=== PATIENT | male | born 1960 | race Caucasian/White ===

== ENCOUNTER 2017-12-24 19:59 | Emergency (ER) | payer MEDICARE ==
[~2017-12-24] VITALS: Ht 182.9 cm; Wt 118.2 kg
[~2017-12-24 19:59] MED LIST: ALDACTONE 25MG25 M1 PO; ASPIRIN 81M81 MG/TA2 PO; COREG 25MG25 MG/TAB PO; COREG12.5 MG PO; GLUCOPHAGE XR500 M1 PO; HUMALOG100 U/ML SQ; LANOXIN 0.25M0.25 MG PO; LANTUS SOLOS100 U/ML SQ; LANTUS100 U/ML SC; LASIX 20MG TABL20 MG PO; LASIX 40MG TABL40 MG PO; NOVOLOG FLEX100 U/ML SC; NOVOLOGMIX70/30 SQ; PRIL40 PO; TIKOSYN0.5 MG PO; XARELTO PO; XARELTO20 MG PO; ZESTRIL 20MG TA20 MG PO
[2017-12-24 20:03] VITALS: TEMP 97.7
[2017-12-24 20:30] LABS: BASO # 0.1 (0.0-0.2); BASO % 0.6 % (0.0-2.0); EOS # 0.4 (0.0-0.7); EOS % 3.4 % (0-4.0); GRAN # 7.6 (1.4-6.5); GRAN % 66.5 % (42.2-75.2); HEMATOCRIT 39.7 % (42.0-52.0); HEMOGLOBIN 13.4 g/dl (13.5-18.0); LYMPH # 2.1 (1.2-3.4); LYMPH % 18.1 % (20.0-51.0); MEAN CELL VOLUME 85 fl (80.0-100.0); MEAN CORPUSCULAR HEMOGLOBIN 29 pg (27.0-31.0); MEAN CORPUSCULAR HGB CONC 34 g/dl (33.0-37.0); MEAN PLATELET VOLUME 10.9 fl (7.4-10.4); MONO # 1.2 (0.1-0.6); MONO % 10.6 % (1.7-9.3); PLATELET COUNT 160 K/mm3 (130-400); RED BLOOD COUNT 4.65 M/mm3 (4.20-5.60); REDCELL DISTRIBUTION WIDTH-CV 13.2 % (11.5-14.5)
[2017-12-24 20:40] LABS: ALBUMIN 3.6 gm/dL (3.5-5.0); BILIRUBIN,TOTAL 0.4 mg/dL (0.0-1.0); CALCIUM 9.1 mg/dL (8.4-10.2); CREATININE, serum 0.98 mg/dL (0.66-1.25); POTASSIUM 3.6 mmol/L (3.4-5.0); TOTAL PROTEIN 7.7 gm/dL (6.4-8.2)
[2017-12-24] MEDS ORDERED: LANTUS100 U/ML SQ (20:41)
[2017-12-24] MEDS ORDERED: HUMALOG100 U/ML SQ (20:43)
[2017-12-24] MEDS ORDERED: LASIX 40MG TABL40 MG PO (20:45)
[2017-12-24] MEDS ORDERED: LEVBID0.375 MG PO (20:47)
[2017-12-24] MEDS ORDERED: CEPHALEXIN500 M1 PO (20:49)
[2017-12-24] MEDS ORDERED: CELEBREX 200MG200 MG PO (20:51)
[2017-12-24] MEDS ORDERED: XANAX .25M0.25 MG/TA PO (20:53)
[2017-12-24] MEDS ORDERED: ENTRESTO 97 MG1 EACH PO (20:54)
[2017-12-24 20:55] LABS: TROPONIN-I 0.036 ng/mL (0.000-0.034)
[2017-12-24] MEDS ORDERED: FLEXERIL 1010 MG/TAB PO (20:58)
[2017-12-24 21:49] VITALS: BP 134/83; PULSE 107
== END 2017-12-24 21:53 | disposition home or self-care (01) ==
LOC: COL.ER 19:59
PROVIDERS: Emergency Medicine
DX: R07.89 Other chest pain (principal); R79.89 Other specified abnormal findings of blood chemistry; I10 Essential (primary) hypertension; E11.9 Type 2 diabetes mellitus without complications; I42.0 Dilated cardiomyopathy; Z95.0 Presence of cardiac pacemaker; Z79.4 Long term (current) use of insulin

== ENCOUNTER 2018-01-31 09:45 | Emergency (ER) | payer MEDICARE ==
[~2018-01-31] VITALS: Ht 182.9 cm; Wt 120.5 kg
[~2018-01-31 09:45] MED LIST changes: +CELEBREX 200MG200 MG PO; +CEPHALEXIN500 M1 PO; +ENTRESTO 97 MG1 EACH PO; +FLEXERIL 1010 MG/TAB PO; +LANTUS100 U/ML SQ; +LEVBID0.375 MG PO; +XANAX .25M0.25 MG/TA PO
[2018-01-31 09:47] VITALS: TEMP 97.9
[2018-01-31 09:59] LABS: BASO # 0.1 (0.0-0.2); BASO % 0.6 % (0.0-2.0); EOS # 0.7 (0.0-0.7); EOS % 6.7 % (0-4.0); GRAN # 6.6 (1.4-6.5); GRAN % 61.1 % (42.2-75.2); HEMATOCRIT 40.3 % (42.0-52.0); HEMOGLOBIN 13.6 g/dl (13.5-18.0); LYMPH # 2.1 (1.2-3.4); LYMPH % 19.6 % (20.0-51.0); MEAN CELL VOLUME 87 fl (80.0-100.0); MEAN CORPUSCULAR HEMOGLOBIN 30 pg (27.0-31.0); MEAN CORPUSCULAR HGB CONC 34 g/dl (33.0-37.0); MEAN PLATELET VOLUME 10.9 fl (7.4-10.4); MONO # 1.2 (0.1-0.6); MONO % 11.5 % (1.7-9.3); PLATELET COUNT 181 K/mm3 (130-400); RED BLOOD COUNT 4.61 M/mm3 (4.20-5.60); REDCELL DISTRIBUTION WIDTH-CV 13.2 % (11.5-14.5)
[2018-01-31 10:05] LABS: INR 1.6 (0.8-3.0); PROTHROMBIN TIME 18.6 SECONDS (9.7-12.8)
[2018-01-31 10:08] LABS: PARTIAL THROMBOPLASTIN TIME 43.7 SECONDS (26.0-37.0)
[2018-01-31 10:09] LABS: ALBUMIN 3.9 gm/dL (3.5-5.0); BILIRUBIN,TOTAL 0.7 mg/dL (0.0-1.0); CALCIUM 9.6 mg/dL (8.4-10.2); CREATININE, serum 0.85 mg/dL (0.66-1.25); POTASSIUM 4.2 mmol/L (3.4-5.0); TOTAL PROTEIN 7.3 gm/dL (6.4-8.2)
[2018-01-31 10:21] LABS: TROPONIN-I 0.023 ng/mL (0.000-0.034)
[2018-01-31] MEDS ORDERED: LIPITOR 40MG TA40 MG PO (11:01)
[2018-01-31] MEDS ORDERED: MAGNESIUM250 M1 PO (11:02)
[2018-01-31] MEDS ORDERED: XARELTO20 MG PO (11:02)
[2018-01-31] MEDS ORDERED: GLUCOPHAGE500 MG/TAB PO (11:02)
[2018-01-31] MEDS ORDERED: LOPRESSOR100 MG PO (11:02)
[2018-01-31] MEDS ORDERED: XANAX .25M0.25 MG/TA PO (11:03)
[2018-01-31 14:00] VITALS: BP 118/86; PULSE 87
== END 2018-01-31 14:28 | disposition home or self-care (01) ==
LOC: COL.ER 09:45 → MEDICAL 12:47
PROVIDERS: Emergency Medicine
DX: R07.89 Other chest pain (principal); E11.9 Type 2 diabetes mellitus without complications; I42.8 Other cardiomyopathies; I48.91 Unspecified atrial fibrillation; Z95.5 Presence of coronary angioplasty implant and graft; Z90.49 Acquired absence of other specified parts of digestive tract; Z98.890 Other specified postprocedural states; Z79.4 Long term (current) use of insulin